=== PATIENT | female | born 1990 | race Caucasian/White ===

== ENCOUNTER 2017-07-30 07:49 | Emergency (ER) | payer OTHER ==
[~2017-07-30] VITALS: Ht 160 cm; Wt 57.1 kg
[2017-07-30 09:41] VITALS: BP 118/81
== END 2017-07-30 09:41 | disposition home or self-care (01) ==
LOC: ED 07:49
DX: N39.0 Urinary tract infection, site not specified (principal)

== ENCOUNTER 2018-06-06 13:31 | Emergency (ER) | payer OTHER ==
[~2018-06-06] VITALS: Ht 157.5 cm; Wt 61.2 kg
[2018-06-06 13:35] VITALS: Ht 157.5 cm; Wt 61.2 kg
[2018-06-06 15:16] VITALS: BP 104/72
== END 2018-06-06 15:23 | disposition home or self-care (01) ==
LOC: ED 13:31
DX: S76.902A Unspecified injury of unspecified muscles, fascia and tendons at thigh level, left thigh, initial encounter (principal); Y93.B9 Activity, other involving muscle strengthening exercises; Y93.89 Activity, other specified; Y92.89 Other specified places as the place of occurrence of the external cause; Y99.8 Other external cause status